=== PATIENT | male | born 1970 | race African-American/Black ===

== ENCOUNTER 2017-04-16 23:38 | Emergency (ER) | payer OTHER ==
[~2017-04-16] VITALS: Ht 193 cm; Wt 135.3 kg
[~2017-04-16 23:38] MED LIST: ADVAIR 250/501 DISK IH; ADVAIR 500/501 DISK IH; ASPIR-LOW81 MG PO; ATORVASTATIN CA10 MG PO; BACTRIM,SEPT1 TABLET PO; BENADRYL ALLERG25 MG PO; CEFDINIR300 MG PO; CELEXA10 MG PO; CITALOPRAM HBR10 MG PO; DIPHENHYDRAMINE PO; ERGOCALCIF50000 UNIT PO; FIORICET WI1 CAPSULE PO; FUROSEMIDE20 MG PO; GLIPIZIDE10 MG PO; HALOPERIDOL1 MG PO; HUMULIN 70100 UNIT/2 SC; HYDROCHLOROTHIA25 MG PO; HYDROCODON-ACE1 EAC7 PO; LISINOPRIL10 MG PO; LO-DOSE ASPIRIN81 M1 PO; LOPRESSOR50 MG PO; METFORMIN HCL850 MG PO; METOPROLOL TART50 MG PO; NAPROSYN500 MG PO; NAPROXEN500 MG PO; PROAIR HFA8.5 GM IH; SUBOXONE 8 M1 TABLET SL; SUBOXONE 8 MG-1 EAC1; SUBOXONE 8 MG-1 EAC2 SL; ULTRACET1 TABLET PO
[2017-04-17 00:06] LABS: POINT-OF-CARE METER ID UU13113778
[2017-04-17 00:25] LABS: HEMATOCRIT 39.5 % (38.0-50.0); MCH 27.7 PG (29.0-34.0); MCHC 33.4 G/DL (30.0-36.0); PLATELET COUNT 249 K/uL (156-360); RBC DIS.WIDTH-CV 13.2 % (11.8-14.6); RBC DIS.WIDTH-SD 39.8 % (39-53); RED BLOOD COUNT 4.76 M/uL (4.00-5.50); WHITE BLOOD COUNT 7.4 K/uL (4.1-10.2)
[2017-04-17 00:31] LABS: CHLORIDE 106 mEq/L (99-109); POTASSIUM 4.1 mEq/L (3.7-5.4); SODIUM 137 mEq/L (136-147)
[2017-04-17 00:33] LABS: GLUCOSE 141 mg/dL (70-99)
[2017-04-17 00:34] LABS: ANION GAP 7 MEQ/L (2-14)
[2017-04-17 00:37] LABS: GFR ESTIMATE (CALCULATED) > 59 mL/min/
[2017-04-17 00:38] LABS: TROP-I INTERPRETATION NEGATIVE; TROPONIN-I < 0.01 ng/mL (0.0-0.30); UREA NITROGEN (BUN) 13 mg/dL (9-23)
[2017-04-17 01:16] LABS: ADD MIUA? NO; BILIRUBIN NEGATIVE; BLOOD NEGATIVE; COLOR YELLOW ((YELLOW)); GLUCOSE (STRIP) NEGATIVE; KETONES NEGATIVE; LEUKOCYTES NEGATIVE; NITRITE NEGATIVE; PROTEIN (STRIP) 30; SPECIFIC GRAVITY 1.029 (1.000-1.030); UCUL ADDED? NO; UROBILINOGEN 0.2 MG/DL (0.2-1.0)
[2017-04-17] MEDS ORDERED: SUBOXONE 12 MG1 EACH SL (01:48)
[2017-04-17] MEDS ORDERED: ATORVASTATIN CA10 MG PO (01:49)
[2017-04-17] MEDS ORDERED: TRESIBA FL200 UNIT/1 SC (01:49)
[2017-04-17] MEDS ORDERED: DESYREL100 MG PO (01:49)
[2017-04-17] MEDS ORDERED: ONE-A-DAY ESSE1 EAC1 PO (01:49)
[2017-04-17] MEDS ORDERED: NOVOLOG PE100 UNITS/ SC (01:50)
[2017-04-17] MEDS ORDERED: LISINOPRIL10 MG PO (01:50)
[2017-04-17 02:27] VITALS: BP 113/80
== END 2017-04-17 02:31 | disposition left against medical advice (07) ==
LOC: EME 23:38
PROVIDERS: Emergency Medicine
DX: I48.91 Unspecified atrial fibrillation (principal); I95.9 Hypotension, unspecified; R53.1 Weakness; J45.909 Unspecified asthma, uncomplicated; I10 Essential (primary) hypertension; E78.5 Hyperlipidemia, unspecified; E11.9 Type 2 diabetes mellitus without complications; Z79.4 Long term (current) use of insulin; Z79.82 Long term (current) use of aspirin; F17.200 Nicotine dependence, unspecified, uncomplicated
CPT/HCPCS: 71020; 80048; 81003; 82948; 83605; 84484; 85027; 87040; 93005; 99281; 99285; J1160; J7030

== ENCOUNTER 2017-04-17 07:22 | Inpatient (IN) | payer OTHER ==
[~2017-04-17] VITALS: Ht 193 cm; Wt 136.0 kg
[~2017-04-17 07:22] MED LIST changes: +DESYREL100 MG PO; +NOVOLOG PE100 UNITS/ SC; +ONE-A-DAY ESSE1 EAC1 PO; +SUBOXONE 12 MG1 EACH SL; +TRESIBA FL200 UNIT/1 SC
[2017-04-17 08:34] LABS: INTER. NORMALIZED RATIO 1.1; PROTHROMBIN TIME 10.7 (9.2-11.2); PTT 27.5 (25-32)
[2017-04-17 12:43] VITALS: BP 102/79
== END 2017-04-17 13:00 | disposition left against medical advice (07) | DRG 310 ==
LOC: EME 07:22 → EDOF 10:01
PROVIDERS: Emergency Medicine
DX: I48.91 Unspecified atrial fibrillation (principal); R00.2 Palpitations; I10 Essential (primary) hypertension; E78.5 Hyperlipidemia, unspecified; E11.9 Type 2 diabetes mellitus without complications; J45.909 Unspecified asthma, uncomplicated; F17.200 Nicotine dependence, unspecified, uncomplicated
CPT/HCPCS: 80053; 85027; 85610; 85730; 93005; 94640; 99202; 99281; 99285; J7030; J7050

== ENCOUNTER 2017-05-13 03:39 | Emergency (ER) | payer OTHER ==
[~2017-05-13] VITALS: Ht 190.5 cm; Wt 135.2 kg
[2017-05-13 05:33] LABS: EOSINOPHIL (%) 5.5 % (0-5); EOSINOPHIL COUNT 0.3 K/uL (0-0.3); IMMATURE GRANULOCYTE (%) 0.5 % (0.0-0.7); LYMPHOCYTE COUNT 2.9 K/uL (1.0-2.8); MCH 27.5 PG (29.0-34.0); MCHC 33.2 G/DL (30.0-36.0); MCV 82.8 FL (86-99); MONOCYTE (%) 8.4 % (3-12); MONOCYTE COUNT 0.5 K/uL (0-0.8); NEUTROPHIL (%) 34.8 % (45-76); PLATELET COUNT 232 K/uL (156-360); RBC DIS.WIDTH-CV 13.2 % (11.8-14.6); RBC DIS.WIDTH-SD 39.8 % (39-53); RED BLOOD COUNT 4.59 M/uL (4.00-5.50); WHITE BLOOD COUNT 5.9 K/uL (4.1-10.2)
[2017-05-13 05:39] LABS: CHLORIDE 104 mEq/L (99-109); POTASSIUM 4.1 mEq/L (3.7-5.4); SODIUM 135 mEq/L (136-147)
[2017-05-13 05:41] LABS: GLUCOSE 136 mg/dL (70-99)
[2017-05-13 05:43] LABS: ANION GAP 8 MEQ/L (2-14); TOTAL BILIRUBIN 0.2 mg/dL (0.0-1.0)
[2017-05-13 05:45] LABS: ALKALINE PHOSPHATASE 109 IU/L (3-129); GFR ESTIMATE (CALCULATED) > 59 mL/min/
[2017-05-13 05:46] LABS: UREA NITROGEN (BUN) 11 mg/dL (9-23)
[2017-05-13 05:49] LABS: TROP-I INTERPRETATION NEGATIVE; TROPONIN-I < 0.01 ng/mL (0.0-0.30)
[2017-05-13 06:42] VITALS: BP 111/68
== END 2017-05-13 06:50 | disposition home or self-care (01) ==
LOC: EME 03:39
PROVIDERS: Emergency Medicine
DX: R00.2 Palpitations (principal); I48.91 Unspecified atrial fibrillation; J45.909 Unspecified asthma, uncomplicated; E11.9 Type 2 diabetes mellitus without complications; E78.5 Hyperlipidemia, unspecified; I10 Essential (primary) hypertension; Z98.61 Coronary angioplasty status; Z79.82 Long term (current) use of aspirin; Z79.4 Long term (current) use of insulin; F17.200 Nicotine dependence, unspecified, uncomplicated
CPT/HCPCS: 71020; 80053; 83735; 84484; 85025; 93005; 99281; 99285

== ENCOUNTER 2017-08-15 16:40 | Emergency (ER) | payer OTHER ==
[~2017-08-15] VITALS: Ht 190.5 cm; Wt 137.9 kg
[2017-08-15 18:03] VITALS: BP 127/86
== END 2017-08-15 18:10 | disposition home or self-care (01) ==
LOC: EME 16:40
DX: K59.00 Constipation, unspecified (principal); J45.909 Unspecified asthma, uncomplicated; F31.9 Bipolar disorder, unspecified; E11.9 Type 2 diabetes mellitus without complications; E78.5 Hyperlipidemia, unspecified; I10 Essential (primary) hypertension; G43.909 Migraine, unspecified, not intractable, without status migrainosus; Z79.82 Long term (current) use of aspirin; Z79.4 Long term (current) use of insulin; F17.200 Nicotine dependence, unspecified, uncomplicated
CPT/HCPCS: 99281; 99283

== ENCOUNTER 2018-04-03 21:30 | Emergency (ER) | payer OTHER ==
[~2018-04-03] VITALS: Ht 193 cm; Wt 140.7 kg
[2018-04-03 22:21] LABS: HEMATOCRIT 34.6 % (38.0-50.0); HEMOGLOBIN 11.7 G/DL (12.5-16.6); MCH 28.7 PG (29.0-34.0); MCHC 33.8 G/DL (30.0-36.0); PLATELET COUNT 195 K/uL (156-360); RBC DIS.WIDTH-CV 13.2 % (11.8-14.6); RBC DIS.WIDTH-SD 40.9 % (39-53); RED BLOOD COUNT 4.07 M/uL (4.00-5.50); WHITE BLOOD COUNT 4.8 K/uL (4.1-10.2)
[2018-04-03 22:38] LABS: ALBUMIN 3.9 g/dL (3.2-4.8); CHLORIDE 103 mEq/L (99-109); POTASSIUM 3.7 mEq/L (3.7-5.4); SODIUM 140 mEq/L (136-147)
[2018-04-03 22:40] LABS: GLUCOSE 122 mg/dL (70-99); TOTAL PROTEIN 7.1 g/dL (6.4-8.3)
[2018-04-03 22:42] LABS: TOTAL BILIRUBIN 0.2 mg/dL (0.0-1.0)
[2018-04-03 22:44] LABS: ALKALINE PHOSPHATASE 87 IU/L (3-129); CREATININE 0.8 mg/dL (0.6-1.3); GFR ESTIMATE (CALCULATED) > 59 mL/min/ (58.99-99999)
[2018-04-03 22:45] LABS: UREA NITROGEN (BUN) 11 mg/dL (9-23)
[2018-04-03 22:46] LABS: AST (GOT) 16 IU/L (2-34); TROP-I INTERPRETATION NEGATIVE; TROPONIN-I < 0.01 ng/mL (0.0-0.30)
[2018-04-03 22:47] LABS: ALT (GPT) 15 IU/L (3-49)
[2018-04-04] MEDS ORDERED: ADVAIR 250/501 DISK IH (00:22)
[2018-04-04] MEDS ORDERED: VENTOLIN HFA18 GM IH (00:22)
[2018-04-04 00:33] LABS: APPEARANCE CLEAR ((CLEAR)); BILIRUBIN NEGATIVE; BLOOD SMALL; COLOR YELLOW ((YELLOW)); GLUCOSE (STRIP) NEGATIVE; KETONES NEGATIVE; LEUKOCYTES NEGATIVE; NITRITE NEGATIVE; PROTEIN (STRIP) 30; SPECIFIC GRAVITY 1.028 (1.000-1.030); UROBILINOGEN 0.2 MG/DL (0.2-1.0)
[2018-04-04 00:37] LABS: BACTERIA NONE SEEN /HPF; CALCIUM OXALATE CRYSTALS 2+ /HPF; EPITHELIAL CELLS RARE /HPF; MUCUS TRACE /LPF; RED BLOOD CELLS 0-5 /HPF (0-5); UCUL ADDED? NO; WHITE BLOOD CELLS 0-5 /HPF (0-5)
[2018-04-04 00:40] VITALS: BP 139/84
== END 2018-04-04 00:41 | disposition home or self-care (01) ==
LOC: EXP 21:30 → EME 21:30 → EXP 04-04 00:41
PROVIDERS: Physician Assistant
DX: J45.901 Unspecified asthma with (acute) exacerbation (principal); M79.89 Other specified soft tissue disorders; I10 Essential (primary) hypertension; E78.5 Hyperlipidemia, unspecified; E11.9 Type 2 diabetes mellitus without complications; Z79.4 Long term (current) use of insulin; I48.91 Unspecified atrial fibrillation; F31.9 Bipolar disorder, unspecified; F17.200 Nicotine dependence, unspecified, uncomplicated; Z90.49 Acquired absence of other specified parts of digestive tract; Z79.82 Long term (current) use of aspirin; Z79.51 Long term (current) use of inhaled steroids; Z91.041 Radiographic dye allergy status
CPT/HCPCS: 71046; 80053; 81003; 83880; 84484; 85027; 93005; 94640; 94640 76; 99281; 99284